=== PATIENT | female | born 1980 | race Hispanic/Latino ===

== ENCOUNTER 2017-06-20 21:28 | Emergency (ER) | payer BC, OTHER | END 2017-06-20 23:27 | disposition left against medical advice (07) | LOC: EDH 21:28 | DX: R10.9 Unspecified abdominal pain (principal); Z53.21 Procedure and treatment not carried out due to patient leaving prior to being seen by health care provider ==

== ENCOUNTER 2018-03-03 21:24 | Emergency (ER) | payer OTHER | END 2018-03-03 22:28 | disposition home or self-care (01) | LOC: EDH 21:24 | DX: M54.6 Pain in thoracic spine (principal); M54.2 Cervicalgia; Z88.5 Allergy status to narcotic agent; Z90.49 Acquired absence of other specified parts of digestive tract | CPT/HCPCS: 99281 ==